=== PATIENT | female | born 1985 | race Caucasian/White ===

== ENCOUNTER 2016-09-22 15:11 | Emergency (ER) | payer MEDICAID, OTHER ==
[~2016-09-22] VITALS: Ht 167.6 cm; Wt 91.6 kg
[2016-09-22] MEDS ORDERED: SODIUM CHLORIDE FLUSH 10ML SYR IVF ONE (15:30)
[2016-09-22] MEDS ORDERED: SODIUM CHLORIDE 0.9% 1,000ML IVBOLUS ONE (15:30)
[2016-09-22 15:50] LABS: BLOOD UREA NITROGEN 15 mg/dL (7-18)
[2016-09-22 16:52] VITALS: BP 118/62
== END 2016-09-22 17:31 | disposition home or self-care (01) ==
LOC: ED 17:24
DX: O03.9 Complete or unspecified spontaneous abortion without complication (principal)
CPT/HCPCS: 36415; 76801; 80048; 82040; 84702; 85025; 86901; 96360; 96361; 99285; J7030